=== PATIENT | female | born 1985 | race African-American/Black ===

== ENCOUNTER 2016-06-26 13:36 | Emergency (ER) | payer OTHER ==
[~2016-06-26 13:36] MED LIST: ALBUTEROL17 GM INH; FLAGYL PO; MACROBID100 MG PO; PHENERGAN PO; PRENATAL W/FOLI1 TA1 PO; REGLAN PO; SINGULAIR PO; ZITHROMAX PO
[2016-06-26 14:24] LABS: URINE SOURCE CLEAN CATCH
[2016-06-26 14:27] LABS: URINE APPEARANCE HAZY; URINE BILIRUBIN NEG (NEG); URINE BLOOD TRACE-INTACT (NEG); URINE COLOR YELLOW; URINE GLUCOSE NEG (NORM); URINE LEUKOCYTE ESTERASE 3+ (NEG); URINE NITRATE NEG (NEG); URINE PH 6.5 (5-8); URINE PROTEIN NEG (NEG)
[2016-06-26 14:28] LABS: BASOPHIL% 0.8 % (0-2.5); EOSINOPHIL# 0.2 X10e3 (0-0.7); EOSINOPHIL% 4.8 % (0.0-7.0); HEMATOCRIT 39.4 % (35.0-45.0); HEMOGLOBIN 13.6 gm/dL (12.0-16.0); LYMPHOCYTE# 1.9 X10e3 (1.0-3.5); LYMPHOCYTE% 40.8 % (17.0-45.0); MEAN CELL VOLUME 92.8 FL (83-96); MEAN CORPUSCULAR HGB CONC 34.5 g/dL (30-36); MEAN PLATELET VOLUME 7.4 FL (6.5-11.5); MONOCYTE# 0.3 X10e3 (0-1.0); MONOCYTE% 7.1 % (3.0-12.0); NEUTROPHIL# 2.2 X10e3 (1.5-7.1); NEUTROPHIL% 46.5 % (40-75); PLATELET COUNT 242 X10e3 (140-420); RED BLOOD COUNT 4.25 X10e (3.90-5.30); RED CELL DISTRIBUTION WIDTH 12.9 % (11.0-15.5); WHITE BLOOD COUNT 4.7 X10e3 (4.0-10.5)
[2016-06-26 14:29] LABS: DIFF IND NO
[2016-06-26 14:29] LABS: MICRO INDICATED? YES; URINE KETONE 2+ (NEG)
[2016-06-26 14:39] LABS: CULTURE INDICATED? YES; URINE BACTERIA 3+ (NEG); URINE SQUAMOUS EPITHELIAL CELL MANY /[HPF]
[2016-06-26 14:45] LABS: ALBUMIN SERUM 4.5 g/dL (3.5-5.0); BILIRUBIN, DIRECT 0.1 mg/dL (0.0-0.2); BILIRUBIN,INDIRECT 0.6 mg/dL (0.0-0.9); BILIRUBIN,TOTAL 0.7 mg/dL (0.2-2.0); BUN/CREATININE RATIO 12.22; CALCIUM SERUM 9.1 mg/dL (8.4-10.2); CREATININE SERUM 0.9 mg/dL (0.6-1.4); GLOM FILT RATE Estimated 99.5 mL/min (>60); POTASSIUM 3.7 mmol/L (3.5-5.1); PROTEIN TOTAL SERUM 8.1 g/dL (6.0-8.3)
== END 2016-06-26 15:10 | disposition home or self-care (01) ==
LOC: SED 13:36
PROVIDERS: Emergency Medicine
DX: N39.0 Urinary tract infection, site not specified (principal); F41.9 Anxiety disorder, unspecified; F17.210 Nicotine dependence, cigarettes, uncomplicated
CPT/HCPCS: 36415; 80048; 80076; 81003; 83690; 84703; 85025; 87086; 99283

== ENCOUNTER 2016-07-09 19:03 | Emergency (ER) | payer OTHER ==
--- NOTE | ~2016-07-09 | CT71 ---
[facility] A Service [facility] RADIOLOGY TEXT RESULTS PATIENT: ESTRADA HECTOR LOCATION: [facility] : 85 UNIT #: [id number] AGE: [address]: Ana Sanz MD SEX: F ORDER DR: [id number] [facility] [address] [place], [place] [address] [id number] MR#: [id number] Acc #: [id number] NAME: ESTRADA HECTOR. : 1985 SEX: F STUDY DATE/TIME: 07/10/2016 1:20 UNIT: [facility] ROOM: STUDY DESCRIPTION: CT Head Wo Contrast Attending Physician: Ana Sanz M.D. Ordering Physician: Ana Sanz M.D. Primary Care Physician: No Primary Care Physician MEDICAL IMAGING REPORT This report is preliminary unless electronic signature is present EXAM CT head without contrast. INDICATION Headache and blurred vision for the past few months. PROCEDURE Unenhanced CT of the head. This CT exam was performed with one or more of the following radiation dose reduction techniques: automatic exposure control, adjustment of mA and/or kV according to patient size, and iterative reconstruction. COMPARISON None FINDINGS No acute hemorrhage, abnormal mass effect, extraaxial fluid collection, or hydrocephalus. No calvarial fracture. Paranasal sinuses and mastoid air cells are clear. IMPRESSION No acute intracranial findings. Dictated by... Darius Hay M.D. THIS IS AN ELECTRONICALLY VERIFIED REPORT Darius Hay M.D. at 07/14/2016 7:23 AM EED/tmw [facility] A Service [facility] RADIOLOGY TEXT RESULTS PATIENT: ESTRADA HECTOR LOCATION: [facility] : 85 UNIT #: [id number] AGE: [address]: Ana Sanz MD SEX: F ORDER DR: TD: 07/10/2016 10:04 JOB #: [id number] MEDICAL IMAGING REPORT Page 1 of 1 COPY
--- NOTE | ~2016-07-09 | CT2 ---
[facility] A Service of [facility] RADIOLOGY TEXT RESULTS PATIENT: ESTRADA HECTOR LOCATION: [facility] : 85 UNIT #: [id number] AGE: [address]: Ana Sanz MD SEX: F ORDER DR: [id number] [place] [id number] [facility]. [place], [place] [address] [id number] MR#: [id number] Acc #: [id number] NAME: ESTRADA HECTOR. : 1985 SEX: F STUDY DATE/TIME: 07/10/2016 1:22 UNIT: [facility] ROOM: STUDY DESCRIPTION: CT Abd and Pelv W Cont Attending Physician: Ana Sanz M.D. Ordering Physician: Ana Sanz M.D. Primary Care Physician: No Primary Care Physician MEDICAL IMAGING REPORT This report is preliminary unless electronic signature is present EXAM CT abdomen and pelvis with contrast. INDICATIONS Lower mid abdominal and pelvic pain for the past few months. PROCEDURE Contrast-enhanced CT of the abdomen and pelvis. This CT exam was performed with one or more of the following radiation dose reduction techniques: automatic exposure control, adjustment of mA and/or kV according to patient size, and iterative reconstruction. COMPARISON None. FINDINGS Abdomen with contrast: Included lung bases are clear. The liver, spleen kidneys, adrenal glands, pancreas and gallbladder show no acute abnormality. Bowel loops are nondilated. Appendix is normal. Pelvis with contras: Heterogeneous appearance of the uterus favored to represent underlying fibroids. No aggressive appearing bone lesion. IMPRESSION 1. No clearly acute findings. 2. Normal appendix. 3. Prominence and heterogeneity of the uterus is favored to represent underlying fibroids. Dictated by... Darius Hay M.D. [facility] A Service of [facility] RADIOLOGY TEXT RESULTS PATIENT: ESTRADA HECTOR LOCATION: [facility] : 85 UNIT #: [id number] AGE: [address]: Ana Sanz MD SEX: F ORDER DR: THIS IS AN ELECTRONICALLY VERIFIED REPORT Darius Hay M.D. at 07/14/2016 7:23 AM ANDREI/tera TD: 07/10/2016 10:00 JOB #: [id number] MEDICAL IMAGING REPORT Page 1 of 1 COPY
[2016-07-09 20:24] LABS: BASOPHIL% 0.8 % (0-2.5); DIFF IND NO; EOSINOPHIL# 0.4 X10e3 (0-0.7); EOSINOPHIL% 5.5 % (0.0-7.0); HEMATOCRIT 39.7 % (35.0-45.0); HEMOGLOBIN 13.5 gm/dL (12.0-16.0); LYMPHOCYTE% 46.4 % (17.0-45.0); MEAN CELL VOLUME 93.3 FL (83-96); MEAN CORPUSCULAR HEMOGLOBIN 31.7 PG (28-34); MEAN PLATELET VOLUME 7.5 FL (6.5-11.5); MONOCYTE# 0.4 X10e3 (0-1.0); MONOCYTE% 6.3 % (3.0-12.0); NEUTROPHIL# 2.6 X10e3 (1.5-7.1); PLATELET COUNT 252 X10e3 (140-420); RED BLOOD COUNT 4.26 X10e (3.90-5.30); RED CELL DISTRIBUTION WIDTH 12.9 % (11.0-15.5); WHITE BLOOD COUNT 6.4 X10e3 (4.0-10.5)
[2016-07-09 20:47] LABS: BUN/CREATININE RATIO 13.75; CREATININE SERUM 0.8 mg/dL (0.6-1.4); GLOM FILT RATE Estimated 114.8 mL/min (>60); POTASSIUM 3.6 mmol/L (3.5-5.1)
[2016-07-10 00:03] LABS: URINE SOURCE CLEAN CATCH
[2016-07-10 00:09] LABS: URINE APPEARANCE TURBID; URINE BILIRUBIN NEG (NEG); URINE BLOOD 2+ (NEG); URINE COLOR YELLOW; URINE GLUCOSE NEG (NEG); URINE KETONE NEG (NEG); URINE LEUKOCYTE ESTERASE NEG (NEG); URINE NITRATE NEG (NEG); URINE PROTEIN NEG (NEG); URINE SPECIFIC GRAVITY 1.022 (1.003-1.035)
[2016-07-10 00:11] LABS: CULTURE INDICATED? YES; URBCS1 AUWI 0-2 /[HPF] (0-2); URINE BACTERIA AUWI 1+ (NEGATIVE); URINE SQUAMOUS EPITHELIAL CELL OCC /[HPF]; UWBCS1 AUWI 0-2 (0-5)
== END 2016-07-10 02:45 | disposition home or self-care (01) ==
LOC: CED 19:03 → CFTX 23:36 → CED 23:36 → CFTX 07-10 02:45
PROVIDERS: Emergency Medicine
DX: D25.9 Leiomyoma of uterus, unspecified (principal); N92.1 Excessive and frequent menstruation with irregular cycle; J45.909 Unspecified asthma, uncomplicated; F17.210 Nicotine dependence, cigarettes, uncomplicated; Z98.51 Tubal ligation status
CPT/HCPCS: 36415; 70450; 74177; 80048; 81003; 84703; 85025; 87086; 99284; Q9967